=== PATIENT | male | born 1970 | race Caucasian/White ===

== ENCOUNTER 2018-03-18 06:57 | Inpatient (IN) | payer OTHER ==
[2018-03-18] MEDS ORDERED: NACL 0.9% 3 ML SYG IV (08:00)
[2018-03-18] MEDS ORDERED: DOCUSATE SODIUM 100 MG CAP PO (08:00)
[2018-03-18] MEDS ORDERED: ACETAMINOPHEN 325 MG TAB PO (08:00)
[2018-03-18] MEDS: ASPIRIN (EC) 81 MG TAB PO (11:04)
[2018-03-18 11:13] LABS: CREATINE KINASE 142 IU/L (23-200)
[2018-03-18 11:25] LABS: TROPONIN-I < 0.012 ng/ml (0.000-0.120)
[2018-03-18 11:56] LABS: CK INDEX 1.1
[2018-03-18 11:59] LABS: CK-MB 1.56 ng/ml (0.0-2.4)
[2018-03-18 14:57] LABS: CREATINE KINASE 131 IU/L (23-200)
[2018-03-18 15:08] LABS: CK-MB 1.29 ng/ml (0.0-2.4); TROPONIN-I < 0.012 ng/ml (0.000-0.120)
[2018-03-18] MEDS ORDERED: ATORVASTATIN 20 MG TAB PO (21:00)
[2018-03-19] MEDS ORDERED: PANTOPRAZOLE (EC) 40 MG TAB PO (06:00)
== END 2018-03-18 18:04 | disposition home or self-care (01) | DRG 312 ==
LOC: TEL 06:57
DX: R55 Syncope and collapse (principal); I10 Essential (primary) hypertension; E78.5 Hyperlipidemia, unspecified
CPT/HCPCS: 82550; 82553; 84484; 93005; 93306; 93880